=== PATIENT | male | born 1995 | race Caucasian/White ===

== ENCOUNTER 2017-07-11 21:41 | Emergency (ER) | payer BC, OTHER ==
[2017-07-11 21:54] VITALS: BP 141/78; PULSE 90; TEMP 98.2; BMI 23.7
--- NOTE | 2017-07-11 21:56 | PDOC ---
History of Present Illness - General Chief Complaint: Pain Stated Complaint: ABDOMINAL PAIN Time Seen by Provider: 07/11/17 21:42 History Source: Patient Exam Limitations: No Limitations - History of Present Illness Initial Comments: 07/11/17 22:12 This is a 21-year-old male who comes in complaining of sharp intermittent abdominal pain in his upper abdomen. Patient said he has had the pain for approximately 3 months that is been intermittent but it got worse today so he came in for evaluation. Patient denied any fevers, chills, nausea, vomiting or diarrhea. Patient said he had a bowel movement today that was dark but he also has been taking Pepto-Bismol. Patient said that he went to an urgent care Center 3 days ago and was told to follow-up with a GI doctor and hasn't quite low with a GI doctor for Thursday of this week. Patient said he couldn't wait until his appointment with his GI doctor. Patient otherwise denies any other medical history and takes no medication other than [id number]-cxhrcyg Pepto- Bismol. PAST MEDICAL HISTORY: no significant history PAST SURGICAL HISTORY: no significant history FAMILY HISTORY: no pertinant history SOCIAL HISTORY: Pt lives with family and is employed. MEDICATIONS: reviewed ALLERGIES: As per nursing notes Review of Systems General: No fevers or chills, no weakness, no weight loss HEENT: No change in vision. No sore throat,. No ear pain CardioVascular: No chest pain or shortness of breath Respiratory:No cough, or wheezing. Gastrointestinal: no nausea, vomitting, diarrhea or constipation, No rectal bleeding Genitourinary: No dysuria, hematuria, or frequency Musculoskeletal: No joint or muscle pain or swelling Neurologic: No headache, vertigo, dizziness or loss of consciousness Psychiatric: nor depression Skin: No rashes or easy bruising Endocrine: no increased thirst or abnormal weight change Allergic: no skin or latex allergy All other systems reviewed and normal Exam: General: Well-nourished well-developed individual, no acute distress HEENT: Throat: Normal, tonsils normal, no erythema or exudate Neck: Supple, no meningeal signs, no lymphadenopathy Eyes::Pupils equal reactive and round, extraocular motion intact Chest: Nontender to palpation Cardiac: S1-S2 normal, regular rate and rhythm, no murmurs rubs or gallops Respiratory: Lungs clear to auscultation bilateral Abdomen: Soft, nondistended, normal bowel sounds, nontender to palpation diffusely rectal exam: Nontender exam, normal prostate, small amount of stool in the rectal vault that is dark brown but not black or tarry Extremities: Warm, dry, no cyanosis, clubbing, or edema Skin: No rashes Neuro: Alert and oriented x3, CN II - XII intact, nonfocal exam with normal strength, normal sensation, normal reflexes, normal gait, Psych: Normal mood and affect Medical medical decision making: This is a 21-year-old male who comes in complaining of some months of intermittent abdominal pain that was worse tonight. The patient also is complaining of some dark stools. Will obtain workup including CBC, comp, stool guaiac, flat and upright abdomen We'll reassess and review workup Will give patient some simethicone Differential includes gastritis, constipation, irritable bowel syndrome Flat and upright abdomen shows constipation with a moderate amount of gas in the area where patient is complaining of pain. However there is no dilated loops of bowel or air-fluid levels. 23:00 Reassessment post simethicone patient does feel much better. His abdomen film shows constipation and some air in the area of where he complained of discomfort. Patient's discomfort has resolved at this time. Assessment and plan: This is a 21-year-old male who comes in complaining of upper abdominal discomfort. On my exam there was no tenderness on palpation and patient had an otherwise normal exam including normal abdominal exam. Patient's x-ray showed that he most likely has some constipation and there was a moderate amount of gas in the area for his discomfort was. Patient was given Gas-X with improvement in his symptoms. Patient otherwise had a white count of 12.5 however there was no left shift and the rest of his blood work was negative for any acute abnormalities. Patient will be discharged home with a diagnosis of constipation and abdominal pain. Patient does have an appointment with a GI doctor in 3 days which he said he will keep. Patient told to increase fluids, increase fiber and purchase some wdft-skr-asykjuo laxative such as MiraLAX and take as directed on the container Past History - Past Medical History Allergies/Adverse Reactions: Allergies Allergy/AdvReac Type Severity Reaction Status Date / Time No Known Allergies Allergy Unverified 07/11/17 22:13 Home Medications: Ambulatory Orders NK [No Known Home Medication] 07/11/17 COPD: No - Suicide/Smoking/Psychosocial Hx Smoking History: Current every day smoker Number of Cigarettes Smoked Daily: 0 If you are a former smoker, when did you quit?: VAPING Information on smoking cessation initiated: Yes 'Breaking Loose' booklet given: 07/11/17 *Physical Exam - Vital Signs Last Vital Signs Temp Pulse Resp BP Pulse Ox 98.2 F 90 16 141/78 100 07/11/17 21:48 07/11/17 21:48 07/11/17 21:48 07/11/17 21:48 07/11/17 21:48 ED Treatment Course - LABORATORY CBC & Chemistry Diagram: 07/11/17 22:15 07/11/17 22:15 *DC/Admit/Observation/Transfer Diagnosis at time of Disposition: Constipation Qualifiers: Constipation type: unspecified constipation type Qualified Code(s): K59.00 - Constipation, unspecified Abdominal pain Qualifiers: Abdominal location: upper abdomen, unspecified Qualified Code(s): R10.10 - Upper abdominal pain, unspecified - Discharge Dispostion Disposition: HOME Admit: No - Referrals - Patient Instructions Printed Discharge Instructions: DI for Constipation Additional Instructions: Increase the fiber in your diet, purchase an xbqw-ywz-yqlqtde laxatives such as MiraLAX and take it as directed, Make sure you stay well hydrated. Keep your appointment with your GI doctor for next week. Return to the emergency department immediately with ANY new, persistent or worsening symptoms. Continue any medications as previously prescribed by your physician. You should follow up with your primary doctor as soon as possible regarding today's emergency department visit. . Please make sure your doctor reviews the results of your emergency evaluation. Thank you for coming to the Emergency Department today for your care. It was a pleasure to see you today. Please note that your evaluation is INCOMPLETE until you follow-up with your doctor. - Post Discharge Activity
[2017-07-11] MEDS ORDERED: SIMETHICONE 80 MG TAB.CHEW (FP) ONE (22:14)
[2017-07-11] MEDS ORDERED: SIMETHICONE 80 MG TAB.CHEW (FP) PO ONE (22:15)
[2017-07-11 22:37] LABS: BASO % 0.7 % (0-2.0); EOS % 2.3 % (0-4.5); HEMATOCRIT 46.8 % (35.4-49); HEMOGLOBIN 16.1 GM/dl (11.7-16.9); LYMPH % 17.6 % (8-40); MCH 29.6 pg (25.7-33.7); MCHC 34.5 g/dl (32.0-35.9); MEAN CELL VOLUME 85.9 fl (80-96); MEAN PLT VOLUME 10.2 fl (7.5-11.1); MONO % 4.8 % (3.8-10.2); NEUT % 74.6 % (42.8-82.8); PLATELET COUNT 243 K/MM3 (134-434); RBC 5.45 M/mm3 (4.00-5.60); RDW 12.5 % (11.9-15.9); WHITE BLOOD COUNT 12.5 K/mm3 (4.0-10.8)
[2017-07-11 22:57] LABS: ALBUMIN 4.7 g/dl (3.5-5.0); ALK PHOS 67 U/L (32-92); ANION GAP 7 (8-16); BILIRUBIN,TOTAL 0.6 mg/dl (0.2-1.0); BLOOD UREA NITROGEN 14 mg/dl (7-18); CALCIUM 9.4 mg/dl (8.4-10.2); CHLORIDE 106 mmol/L (98-107); CO2 23 mmol/L (22-28); CREATININE 0.9 mg/dl (0.6-1.3); GLUCOSE,RANDOM 107 mg/dl (74-106); POTASSIUM 3.6 mmol/L (3.5-5.1); SGOT/AST 17 U/L (10-42); SGPT/ALT 13 U/L (10-40); SODIUM 136 mmol/L (136-145); TOT PROT 7.2 g/dl (6.4-8.3)
== END 2017-07-11 23:33 | disposition home or self-care (01) ==
LOC: FER 21:41
DX: K59.00 Constipation, unspecified (principal); F17.210 Nicotine dependence, cigarettes, uncomplicated
CPT/HCPCS: 36415; 74019-TC-FY; 80053; 82272; 85025; 99282-25